=== PATIENT | male | born 1960 ===

== ENCOUNTER 2021-02-13 06:34 | Day surgery (SDC) | payer OTHER ==
[~2021-02-13 06:34] MED LIST: ALLOPURINOL300 MG PO; AVALIDE 300-121 EACH PO; TAMS0.4C PO; TOPROL XL50 M1 PO; TRENTAL PO
[2021-02-13] MEDS ORDERED: NEURONTIN300 MG PO (07:16)
[2021-02-13] MEDS ORDERED: TYLENOL ARTHRI650 MG PO (07:16)
[2021-02-13] MEDS ORDERED: MIRALAX17 GM PO (07:16)
[2021-02-13] MEDS ORDERED: ULTRAM50 MG PO (07:16)
== END 2021-02-13 11:35 | disposition home or self-care (01) ==
LOC: CIR.AMB 06:34
PROVIDERS: ATTEND Surgery
DX: K40.90 Unilateral inguinal hernia, without obstruction or gangrene, not specified as recurrent (principal); Z20.822 Contact with and (suspected) exposure to COVID-19